=== PATIENT | female | born 1990 | race Caucasian/White ===

== ENCOUNTER 2019-06-30 21:02 | Emergency (ER) | payer OTHER ==
[2019-06-30] MEDS ORDERED: CYCLOBENZAPRINE HCL 10 MG TABLET (FP) PO ONE (21:11)
[2019-06-30] MEDS ORDERED: KETOROLAC TROMETHAMINE 60 MG/2 ML VIAL IM ONE (21:11)
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
[2019-06-30 21:12] VITALS: BP 142/95; PULSE 97; TEMP 97.9; BMI 53.0
[2019-06-30] MEDS ORDERED: KETOROLAC TROMETHAMINE 60 MG/2 ML VIAL ONE (22:06)
[2019-06-30] MEDS ORDERED: CYCLOBENZAPRINE HCL 10 MG TABLET (FP) ONE (22:06)
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
== END 2019-06-30 22:17 | disposition home or self-care (01) ==
LOC: JERFT 21:02
PROC: 3E0233Z Introduction of Anti-inflammatory into Muscle, Percutaneous Approach (ICD-10-PCS; principal; 2019-06-30)
DX: S16.1XXA Strain of muscle, fascia and tendon at neck level, initial encounter (principal); V49.49XA Driver injured in collision with other motor vehicles in traffic accident, initial encounter; Y92.414 Local residential or business street as the place of occurrence of the external cause; Y93.89 Activity, other specified; Y99.8 Other external cause status
CPT/HCPCS: 99281-25

== ENCOUNTER 2020-09-23 09:00 | Emergency (ER) | payer BC ==
[2020-09-23 09:07] VITALS: BP 108/70; PULSE 103; TEMP 98; BMI 47.1
[2020-09-23] MEDS ORDERED: KETOROLAC TROMETHAMINE 30 MG/1 ML VIAL IM ONE (09:42)
[2020-09-23] MEDS ORDERED: KETOROLAC TROMETHAMINE 30 MG/1 ML VIAL ONE (09:52)
[2020-09-23 11:00] LABS: BASO % 0.6 % (0-2.0); EOS % 1.5 % (0-4.5); HEMATOCRIT 38.6 % (32.4-45.2); HEMOGLOBIN 12.8 GM/dL (10.7-15.3); LYMPH % 42.7 % (8-40); MCH 25.4 pg (25.7-33.7); MCHC 33.2 g/dl (32.0-36.0); MEAN CELL VOLUME 76.5 fl (80-96); MEAN PLT VOLUME 8.9 fl (7.5-11.1); NEUT % 46.2 % (42.8-82.8); PLATELET COUNT 257 K/MM3 (134-434); RBC 5.05 M/mm3 (3.60-5.2); RDW 15.7 % (11.6-15.6); WHITE BLOOD COUNT 5.3 K/mm3 (4.0-10.0)
[2020-09-23 11:21] LABS: CHLORIDE 108 mmol/L (98-107); POTASSIUM 3.4 mmol/L (3.5-5.1); SODIUM 141 mmol/L (136-145)
[2020-09-23 11:22] LABS: CALCIUM 9.2 mg/dL (8.5-10.1)
[2020-09-23 11:23] LABS: ALBUMIN 3.6 g/dl (3.4-5.0); ANION GAP 8 MMOL/L (8-16); BLOOD UREA NITROGEN 12.3 mg/dL (7-18); CO2 24 mmol/L (21-32); GLUCOSE,RANDOM 82 mg/dL (74-106)
[2020-09-23 11:27] LABS: CREATININE 0.7 mg/dL (0.55-1.3); SGOT/AST 14 U/L (15-37); SGPT/ALT 39 U/L (13-61); TOT PROT 7.1 g/dl (6.4-8.2)
[2020-09-23 11:30] LABS: ALK PHOS 60 U/L (45-117)
== END 2020-09-23 12:05 | disposition home or self-care (01) ==
LOC: JER 09:00
PROC: 3E0233Z Introduction of Anti-inflammatory into Muscle, Percutaneous Approach (ICD-10-PCS; principal; 2020-09-23)
DX: M54.41 Lumbago with sciatica, right side (principal)
CPT/HCPCS: 36415; 80053; 84702; 85025; 93971-TC; 99284-25

== ENCOUNTER 2023-04-03 19:15 | Inpatient (IN) | payer BC, OTHER ==
[2023-04-03] MEDS ORDERED: DINOPROSTONE 10 MG VAGINAL SUPPOSITORY VG ONE (21:07)
[2023-04-03] MEDS ORDERED: BUTORPHANOL TARTRATE 1 MG/ML VIAL IVPUSH PRN (21:10)
[2023-04-03] MEDS ORDERED: PROMETHAZINE HCL 25 MG/1 ML VIAL IVPB ONE (21:10)
[2023-04-03] MEDS: ELECTROLYTE-148 SOLN 1,000 ML IV SCH (21:35)
[2023-04-03 21:48] LABS: BASO % 0.2 % (0-2.0); EOS % 0.5 % (0-4.5); HEMATOCRIT 34.9 % (32.4-45.2); HEMOGLOBIN 11.9 GM/dL (10.7-15.3); LYMPH % 22.9 % (8-40); MCH 27.8 pg (25.7-33.7); MCHC 34.1 g/dl (32.0-36.0); MEAN CELL VOLUME 81.7 fl (80-96); MONO % 6.9 % (3.8-10.2); NEUT % 69.5 % (42.8-82.8); PLATELET COUNT 156 10^3/uL (134-434); RBC 4.27 M/mm3 (3.60-5.2); RDW 14.9 % (11.6-15.6); WHITE BLOOD COUNT 9.6 K/mm3 (4.0-10.0)
[2023-04-03 21:55] LABS: INR 1.1 (0.83-1.09); PROTHROMBIN TIME (PATIENT) 12.7 SEC (9.7-13.0)
[2023-04-03 21:58] LABS: ACTIVATED PTT 26.4 SECONDS (25.2-36.5)
[2023-04-03 22:17] VITALS: BMI 36.9
[2023-04-03 22:29] LABS: BLOOD UREA NITROGEN 18.6 mg/dL (7-18)
[2023-04-03 22:32] LABS: CREATININE 0.7 mg/dL (0.55-1.3)
[2023-04-04] MEDS ORDERED: FENTANYL/BUPIVACAINE/NS/PF - PCEA - 50 ML DISP.SYRIN EP ONE ×2 (04:07→09:30)
[2023-04-04] MEDS ORDERED: NALOXONE HCL 0.4 MG/ML VIAL IVPUSH PRN (04:17)
[2023-04-04] MEDS ORDERED: BUPIVACAINE HCL/PF 0.25% (2.5MG/ML) 10 ML VIAL ONE (04:19)
[2023-04-04] MEDS ORDERED: FENTANYL CITRATE/PF 50 MCG/ML VIAL ONE (04:19)
[2023-04-04] MEDS: FENTANYL/BUPIVACAINE/NS/PF - PCEA - 50 ML DISP.SYRIN EP SCH ×2 (04:45→09:34)
[2023-04-04] MEDS ORDERED: OXYTOCIN 30 UNITS in 0.9% NS 30 UNIT/500 ML INFUS.BAG IVPB SCH (05:00)
[2023-04-04] MEDS ORDERED: OXYTOCIN 30 UNITS in 0.9% NS 30 UNIT/500 ML INFUS.BAG IVPB ONE (05:38)
[2023-04-04] MEDS: CLINDAMYCIN 900 MG PREMIX IVPB 900 MG/50 ML BAG IVPB SCH ×3 (08:30→22:20)
[2023-04-04] MEDS: ELECTROLYTE-148 SOLN 1,000 ML IV SCH (10:20)
[2023-04-04] MEDS: valACYclovir HCL 500 MG TABLET (FP) PO SCH ×2 (10:44→21:09)
[2023-04-04 13:03] LABS: POC NITRAZINE POS
[2023-04-04] MEDS ORDERED: OXYTOCIN 20 UNITS in 0.9% NS 20 UNIT/1,000 ML INFUS.BAG IV ONE (13:04)
[2023-04-04] MEDS ORDERED: LIDOCAINE HCL 1% PRESERVATIVE FREE - 30ML VIAL ONE (13:04)
[2023-04-04 14:43] LABS: CORD BASE EXCESS -8.4 mmol/L (0-2); CORD HCO3 20.1 mmHg (20-29); CORD pH 7.204 (7.14-7.44)
[2023-04-04 14:46] LABS: CORD BASE EXCESS -6.5 mmol/L (0-2); CORD PCO2 48.5 mmHg (30-78); CORD pH 7.254 (7.14-7.44)
[2023-04-04] MEDS ORDERED: oxyCODONE HCL 5 MG TABLET PO PRN (16:10)
[2023-04-04] MEDS ORDERED: BISACODYL 10 MG SUPP.RECT RC PRN (16:10)
[2023-04-04] MEDS ORDERED: BENZOCAINE 20% 57 GM BOTTLE TP PRN (16:10)
[2023-04-04] MEDS ORDERED: BENZOCAINE 28 GM HEMORRHOIDAL OINTMENT TP PRN (16:10)
[2023-04-04] MEDS ORDERED: WITCH HAZEL 50% (TUCKS) 40 PAD/JAR PAD TP PRN (16:10)
[2023-04-04] MEDS ORDERED: METHYLERGONOVINE MALEATE 0.2 MG/1 ML AMP IM PRN (16:10)
[2023-04-04] MEDS ORDERED: IBUPROFEN 600 MG TABLET (FP) PO PRN (16:10)
[2023-04-04] MEDS ORDERED: OXYTOCIN 20 UNITS in 0.9% NS 20 UNIT/1,000 ML INFUS.BAG IV SCH (16:15)
[2023-04-04] MEDS: ACETAMINOPHEN 325 MG TABLET (FP) PO PRN ×2 (18:12→21:15)
[2023-04-05] MEDS: CLINDAMYCIN 900 MG PREMIX IVPB 900 MG/50 ML BAG IVPB SCH ×4 (04:00→21:09)
[2023-04-05] MEDS: ACETAMINOPHEN 325 MG TABLET (FP) PO PRN ×4 (04:10→22:35)
[2023-04-05 07:36] LABS: BASO % 0.3 % (0-2.0); EOS % 0.4 % (0-4.5); HEMATOCRIT 32.9 % (32.4-45.2); HEMOGLOBIN 10.9 GM/dL (10.7-15.3); LYMPH % 17.6 % (8-40); MCH 27.7 pg (25.7-33.7); MCHC 33.1 g/dl (32.0-36.0); MEAN CELL VOLUME 83.5 fl (80-96); MEAN PLT VOLUME 8.4 fl (7.5-11.1); MONO % 8.1 % (3.8-10.2); NEUT % 73.6 % (42.8-82.8); PLATELET COUNT 148 10^3/uL (134-434); RBC 3.94 M/mm3 (3.60-5.2); RDW 14.5 % (11.6-15.6); WHITE BLOOD COUNT 11.6 K/mm3 (4.0-10.0)
[2023-04-05] MEDS: valACYclovir HCL 500 MG TABLET (FP) PO SCH ×2 (09:26→21:02)
[2023-04-05] MEDS: FENTANYL/BUPIVACAINE/NS/PF - PCEA - 50 ML DISP.SYRIN EP SCH (13:01)
[2023-04-05] MEDS ORDERED: SENNOSIDES/DOCUSATE COMBO (SENNA PLUS) TABLET (UD) PO PRN (22:00)
[2023-04-06] MEDS: CLINDAMYCIN 900 MG PREMIX IVPB 900 MG/50 ML BAG IVPB SCH (02:01)
[2023-04-06] MEDS: ACETAMINOPHEN 325 MG TABLET (FP) PO PRN (07:15)
[2023-04-06 10:27] VITALS: BP 107/72; PULSE 61; RESP 16; TEMP 98.4
[2023-04-06] MEDS: valACYclovir HCL 500 MG TABLET (FP) PO SCH (10:29)
== END 2023-04-06 10:25 | disposition home or self-care (01) | DRG 807 ==
LOC: JLDR 19:15 → J3W 04-04 16:20
PROVIDERS: ADMIT Obstetrics & Gynecology; ATTEND Obstetrics & Gynecology
PROC: 0HQ9XZZ Repair Perineum Skin, External Approach (ICD-10-PCS; principal; 2023-04-04)
PROC: 10E0XZZ Delivery of Products of Conception, External Approach (ICD-10-PCS; 2023-04-04)
DX: O42.02 Full-term premature rupture of membranes, onset of labor within 24 hours of rupture (principal); Z37.0 Single live birth; O70.0 First degree perineal laceration during delivery; Z3A.39 39 weeks gestation of pregnancy
CPT/HCPCS: 36415; 36600; 80048; 82803; 83986-QW; 85025; 85610; 85730; 86780; 86850; 86900; 86901